=== PATIENT | female | born 1940 | race Caucasian/White ===

== ENCOUNTER 2016-08-01 11:15 | Outpatient (RCR) | payer MEDICARE, OTHER | END 2016-08-02 | disposition home or self-care (01) | LOC: WSPT | DX: R26.2 Difficulty in walking, not elsewhere classified (principal) | CPT/HCPCS: G8978-GP; G8979-GP ==

== ENCOUNTER 2016-10-31 11:15 | Outpatient (RCR) | payer MEDICARE, OTHER | END 2016-11-01 | disposition still patient (30) | LOC: WSPT | DX: R53.1 Weakness (principal); Z98.1 Arthrodesis status | CPT/HCPCS: G8978-GP; G8979-GP ==

== ENCOUNTER 2017-01-31 11:15 | Outpatient (RCR) | payer MEDICARE, OTHER | END 2017-02-01 | LOC: WSPT | DX: R26.2 Difficulty in walking, not elsewhere classified (principal); Z98.1 Arthrodesis status | CPT/HCPCS: G8978-GP; G8979-GP ==

== ENCOUNTER 2017-05-02 11:15 | Outpatient (RCR) | payer MEDICARE, OTHER | END 2017-05-08 | disposition home or self-care (01) | LOC: WSPT | DX: R26.2 Difficulty in walking, not elsewhere classified (principal) | CPT/HCPCS: G8978-GP; G8979-GP ==

== ENCOUNTER → 2017-06-12 | Outpatient (CLI) | payer MEDICARE, OTHER | LOC: MC.RAD 10:36 | DX: Z12.31 Encounter for screening mammogram for malignant neoplasm of breast (principal) ==

== ENCOUNTER 2017-08-01 11:15 | Outpatient (RCR) | payer MEDICARE, OTHER | END 2017-08-03 08:42 | disposition home or self-care (01) | LOC: WSPT 11:15 | DX: R26.2 Difficulty in walking, not elsewhere classified (principal) ==

== ENCOUNTER → 2018-07-18 | Outpatient (CLI) | payer MEDICARE, OTHER | LOC: MC.RAD 11:30 | DX: Z12.31 Encounter for screening mammogram for malignant neoplasm of breast (principal) ==

== ENCOUNTER → 2019-07-24 | Outpatient (CLI) | payer MEDICARE | LOC: MC.RAD 11:16 | DX: Z12.31 Encounter for screening mammogram for malignant neoplasm of breast (principal) ==

== ENCOUNTER → 2020-07-24 | Outpatient (CLI) | payer MEDICARE | LOC: MC.RAD | DX: Z12.31 Encounter for screening mammogram for malignant neoplasm of breast (principal); Z00.00 Encounter for general adult medical examination without abnormal findings ==

== ENCOUNTER → 2021-08-19 | Outpatient (RCR) | payer MEDICARE | END | disposition home or self-care (01) | LOC: WSPT | DX: S82.841D Displaced bimalleolar fracture of right lower leg, subsequent encounter for closed fracture with routine healing (principal); X58.XXXD Exposure to other specified factors, subsequent encounter ==

== ENCOUNTER 2021-09-16 11:15 | Outpatient (RCR) | payer MEDICARE | END 2021-09-18 | disposition home or self-care (01) | LOC: WSPT | DX: S82.841D Displaced bimalleolar fracture of right lower leg, subsequent encounter for closed fracture with routine healing (principal); X58.XXXD Exposure to other specified factors, subsequent encounter ==

== ENCOUNTER → 2021-10-13 | Outpatient (CLI) | payer MEDICARE | LOC: MC.RAD 12:47 | DX: Z12.31 Encounter for screening mammogram for malignant neoplasm of breast (principal) ==

== ENCOUNTER 2021-10-14 11:15 | Outpatient (RCR) | payer MEDICARE | END 2021-10-19 | disposition still patient (30) | LOC: WSPT | DX: S82.841D Displaced bimalleolar fracture of right lower leg, subsequent encounter for closed fracture with routine healing (principal); X58.XXXD Exposure to other specified factors, subsequent encounter ==

== ENCOUNTER → 2021-11-18 | Outpatient (RCR) | payer MEDICARE | END | disposition home or self-care (01) | LOC: WSPT | DX: S82.841D Displaced bimalleolar fracture of right lower leg, subsequent encounter for closed fracture with routine healing (principal); X58.XXXD Exposure to other specified factors, subsequent encounter ==

== ENCOUNTER 2021-12-16 11:15 | Outpatient (RCR) | payer MEDICARE | END 2021-12-19 | disposition home or self-care (01) | LOC: WSPT | DX: S82.841D Displaced bimalleolar fracture of right lower leg, subsequent encounter for closed fracture with routine healing (principal) ==

== ENCOUNTER 2022-01-17 13:15 | Outpatient (RCR) | payer MEDICARE | END 2022-01-19 | disposition home or self-care (01) | LOC: WSPT | DX: S82.841D Displaced bimalleolar fracture of right lower leg, subsequent encounter for closed fracture with routine healing (principal); X58.XXXD Exposure to other specified factors, subsequent encounter ==

== ENCOUNTER 2022-03-17 12:00 | Outpatient (RCR) | payer MEDICARE | END 2022-03-21 | disposition still patient (30) | LOC: WSPT | DX: S82.841D Displaced bimalleolar fracture of right lower leg, subsequent encounter for closed fracture with routine healing (principal); R54 Age-related physical debility; R26.89 Other abnormalities of gait and mobility; R09.82 Postnasal drip; F33.0 Major depressive disorder, recurrent, mild; M25.511 Pain in right shoulder; X58.XXXD Exposure to other specified factors, subsequent encounter ==

== ENCOUNTER → 2022-06-21 | Outpatient (CLI) | payer MEDICARE | LOC: COL.LAB 16:18 | DX: R26.9 Unspecified abnormalities of gait and mobility (principal); R29.2 Abnormal reflex; R70.0 Elevated erythrocyte sedimentation rate; R79.82 Elevated C-reactive protein (CRP); M62.81 Muscle weakness (generalized); M62.838 Other muscle spasm; M25.50 Pain in unspecified joint; M79.672 Pain in left foot; Z98.890 Other specified postprocedural states ==